=== PATIENT | male | born 1970 | race Caucasian/White ===

== ENCOUNTER 2023-08-06 13:49 | Emergency (ER) | payer OTHER ==
[2023-08-06 14:23] VITALS: RESP 18
--- NOTE | 2023-08-06 14:37 | ERPHSYRPT ---
- History of Present Illness Time Seen by Provider: 08/06/23 14:34 Source: patient Exam Limitations: no limitations Patient Subjective Stated Complaint: C/O right ear infection that started yesterday Triage Nursing Assessment: Patient ambulated back to ER without difficulties. He is alert and oriented. NO SOB. Skin tone normal. Patient is able to hear staff without any difficulties noted. Physician History: Patient is 52-year-old male without any significant past medical history has not seen physician in last 15 years started having some pain in his right ear and some fluid filled sensation in his left ear. He started having pain in his right ear so he came to the emergency room. She denies any discharge from his ear. He off-and-on uses Q-tips and paper towel to clean his ear. Patient also complaining of severe leg cramps as well as rash on his both lower leg. Timing/Duration: day(s) Associated Symptoms: denies symptoms Allergies/Adverse Reactions: No Known Drug Allergies Allergy (Verified 08/06/23 14:00) Hx Tetanus, Diphtheria Vaccination/Date Given: No Hx Influenza Vaccination/Date Given: No Hx Pneumococcal Vaccination/Date Given: No Immunizations Up to Date: No Travel Risk - International Travel Have you traveled outside of the country in past 3 weeks: No - Emerging Infectious Disease Are you exhibiting symptoms associated with any current EIDs: No - Review of Systems Constitutional: No Fever, No Chills Eyes: No Symptoms Ears, Nose, & Throat: Ear Pain Respiratory: No Cough, No Dyspnea Cardiac: No Chest Pain, No Edema, No Syncope Abdominal/Gastrointestinal: No Abdominal Pain, No Nausea, No Vomiting, No Diarrhea Genitourinary Symptoms: No Dysuria Musculoskeletal: No Back Pain, No Neck Pain Skin: Rash (on both lower legs) Neurological: No Dizziness, No Focal Weakness, No Sensory Changes Psychological: No Symptoms Endocrine: No Symptoms All Other Systems: Reviewed and Negative - Past Medical History Pertinent Past Medical History: No - Past Surgical History Past Surgical History: No - Social History Smoking Status: Never smoker Exposure to second hand smoke: No Drug Use: none - Nursing Vital Signs Nursing Vital Signs: Initial Vital Signs Pulse Rate 95 H 08/06/23 13:52 Respiratory Rate 17 08/06/23 13:52 Blood Pressure 127/87 08/06/23 13:52 O2 Sat by Pulse Oximetry 96 08/06/23 13:52 Pain Scale Pain Intensity 2 - Physical Exam General Appearance: no apparent distress, alert Eye Exam: PERRL/EOMI, eyes nml inspection Ears, Nose, Throat Exam: normal ENT inspection, TMs normal, pharynx normal, moist mucous membranes, TM abnormal (R), TM abnormal (L) Neck Exam: normal inspection, non-tender, supple, full range of motion Respiratory Exam: normal breath sounds, lungs clear, No respiratory distress Cardiovascular Exam: regular rate/rhythm, normal heart sounds, normal peripheral pulses Gastrointestinal/Abdomen Exam: soft, normal bowel sounds, No tenderness, No mass Back Exam: normal inspection, normal range of motion, No CVA tenderness, No vertebral tenderness Extremity Exam: normal inspection, normal range of motion, pelvis stable Neurologic Exam: alert, oriented x 3, cooperative, normal mood/affect, nml cerebellar function, nml station & gait, sensation nml, No motor deficits Skin Exam: normal color, warm, dry, rash Lymphatic Exam: No adenopathy SpO2: 95 - Course Nursing assessment & vital signs reviewed: Yes Ordered Tests: Active Orders 24 hr Category Date Time Status Ear Irrigation STAT Care 08/06/23 14:25 Active POCT Glucose Check STAT Care 08/06/23 14:25 Active CBC W DIFF Stat Lab 08/06/23 14:54 Received CMP Stat Lab 08/06/23 14:54 Received POCT GLUCOSE Stat Lab 08/06/23 14:34 Completed Medication Summary Discontinued Medications Generic Name Dose Route Start Last Admin Trade Name Diane PRN Reason Stop Dose Admin Neomycin/Polymyxin/Hydrocortisone 10 ml 08/06/23 14:53 08/06/23 15:08 Neomy Sulf/Polymyx B Sulf/Hc 10 Ml Otic Solution OT 08/06/23 14:54 10 ml STAT ONE Administration Neomycin/Polymyxin/Hydrocortisone Confirm 08/06/23 15:04 Neomy Sulf/Polymyx B Sulf/Hc 10 Ml Otic Suspension Administered 08/06/23 15:05 Dose 10 ml OT .STK-MED ONE Lab/Rad Data: Laboratory Results 08/06/23 Range/Units 14:34 POC Glucometer 108 H (74 to 106) mg/dL - Progress Progress: improved, pain not gone completely Medical Desision Making - Diagnostic Testing Diagnostic test were ordered, analyzed, and reviewed by me: Yes - Risk of complications Minimal Risk: Minimal risk of morbidity - Departure Departure Disposition: Home Clinical Impression: Rash and nonspecific skin eruption, Leg cramps Otitis media Qualifiers: Otitis media type: suppurative Chronicity: acute Laterality: bilateral Recurrence: non-recurrent Spontaneous tympanic membrane rupture: without spontaneous rupture Qualified Code(s): H66.003 - Acute suppurative otitis media without spontaneous rupture of ear drum, bilateral Condition: Stable Critical Care Time: No Referrals: DOCTOR,NO FAMILY [Primary Care Provider] - Follow Up with PCP/3 days Instructions: Ear Infections in Adults (DC) Additional Instructions: Use ear drops as prescribed for 10 days Discharge/Care Plan GEMA LANTIGUA was seen on 08/06/23 in the Emergency Room. The patient was counseled regarding Diagnosis,Lab results, Imaging studies, need for follow up and when to return to the Emergency Room. Prescriptions given: Discharge Note I have spoken with the patient and/or caregivers. I have explained the patient's condition, diagnosis and treatment plan based on the information available to me at this time. I have answered the patient's and/or caregiver's questions and addressed any concerns. The patient and/or caregivers have as good understanding of the patient's diagnosis, condition and treatment plan as can be expected at this point. The vital signs have been stable. The patient's condition is stable and appropriate for discharge from the emergency department. The patient will pursue further outpatient evaluation with the primary care physician or other designated or consulting physician as outlined in the discharge instructions. The patient and/or caregivers are agreeable to this plan of care and follow-up instructions have been explained in detail. The patient and/or caregivers have received these instruction. The patient/and or caregivers are aware that any significant change in condition or worsening of symptoms should prompt an immediate return to this or the closest emergency department or call 911. GEMA LANTIGUA was seen on 08/06/23 n the Emergency Room. At that time you were treated for an emergent condition, during your visit Laboratory, Radiology and/or other procedures may have been ordered. It is very important that you fol low-up with your Primary Care Physician NO FAMILY DOCTOR within the next 24-48 hours to review your Emergency Room visit and the final results of testing that was ordered. Some test results such as Urine Cultures, Blood Cultures, and other cultures if ordered will not be finalized for 24-48 hours. If you do not have a Primary Care Provider please call the medical records department at [phone] to obtain a copy of your results or you may sign into our patient portal to obtain these results by visiting us @ [email or web address] and completing the following steps: 1. Click on the Patient Portal link 2. Click the Patient Self Enrollment Link to complete the enrollment form and entering your 3. Once the enrollment form is completed you will receive an email with a temporary ID and password at the email address you provided. 4. Next choose a user name and password. Your user name must be at least 4 zeeshan racters long and your password must be at least 4 characters long. 5. Choose a security question from the list and provide your answer to the question. If you already have signed into the Health Portal you may access your Health Care Information 24/10 by the following steps: 1. Login to our website @ [email or web address] 2. Enter your original user name and password. FAQS The [facility] Health Portal is an online tool that contains your Lab Results, Radiology Reports, Visit History, Discharge Instructions and Health Summary Lab and Radiology Results will not be available for 72 hours on the portal. The Portal is a secure site, passwords are encryted and URLs are re-written so they cannot be copied and pasted. You and authorized family members are the only ones who can access your Portal. Also there is a timeout feature that protects your information if you leave the Portal page open. If you have technical difficulty please use the Contact Us link on the page this will allow you to submit any questions you have regarding the Portal or you may contact the Medical Record Department at [phone]. Prescriptions: Amoxicillin 500 mg Cap [Amoxil 500 mg] 500 mg PO TID #30 cap Triamcinolone 0.1% Cream [Kenalog 0.1% Cream 15 gm] 1 gm TP QID #60 cm
[2023-08-06 15:04] LABS: Absolute Neutrophil Ct (ANC) 9.88 x10^3/uL (1.4-6.9); BASOPHIL % 0.4 % (0.0-0.4); Basophil (Absolute #) 0.05 x10^3/uL (0-0.4); Eosinophil % 1.5 % (0.00-5.0); Hematocrit 46.7 % (42-50); Hemoglobin 15.3 g/dL (12.5-18.0); IMMATURE GRAN # 0.02 x10^3u/L (0.00-0.03); IMMATURE GRAN % 0.2 % (0.00-0.4); Lymphocyte (Absolute #) 1.71 x10^3/uL (1.0-4.6); Mean Corpuscular Hemoglobin 28.2 pg (26-32); Mean Corpuscular Hgb Concent. 32.8 g/dL (32-36); Mean Platelet Volume 8.8 fL (7.5-11.0); Monocyte (Absolute #) 1.34 x10^3/uL (0.0-1.3); Monocytes % 10.2 % (0.0-12.0); Neutrophil % 74.7 % (36.0-66.0); Platelet Count 316 x10^3/uL (150-450); Red Blood Count 5.43 x10^6/uL (4.1-5.6); Red Cell Distribution Width 12.8 % (11.5-14.0); White Blood Count 13.2 x10^3/uL (4.0-10.5)
[2023-08-06] MEDS ORDERED: CORTISPORIN EAR DROPS 10 ML SUSPENSION OT ONE (15:04)
[2023-08-06 15:08] LABS: ALBUMIN 4.2 g/dL (3.5-5.0); ANION GAP 11.6 MEQ/L (5-15); Calcium 9.2 mg/dL (8.4-10.2); Creatinine 1 0.84 mg/dL (0.66-1.25); EST GLOMERULAR FILTRATION RATE 104.3 ML/MIN; Potassium 4.2 mmol/L (3.5-5.1); Total Protein 7.7 g/dL (6.3-8.2)
[2023-08-06] MEDS: CORTISPORIN EAR DROPS Solution 1OML OT ONE (15:08)
[2023-08-06 15:29] VITALS: BP 120/80; PULSE 78; O2SAT 97
== END 2023-08-06 15:30 | disposition home or self-care (01) ==
LOC: ED 13:49
DX: H66.003 Acute suppurative otitis media without spontaneous rupture of ear drum, bilateral (principal); R21 Rash and other nonspecific skin eruption; R25.2 Cramp and spasm
CPT/HCPCS: 36415; 69210; 80053; 82947; 85025; 99282; A9270-GY